=== PATIENT | male | born 1950 | race African-American/Black ===

== ENCOUNTER 2017-02-14 12:48 | Emergency (ER) | payer OTHER, BC ==
[2017-02-14 13:03] VITALS: BP 122/74; PULSE 115; TEMP 98.3; BMI 34.2
[2017-02-14] MEDS ORDERED: SODIUM CHLORIDE 0.9% 1000 ML INFUS.BAG IV ONE (15:15)
--- NOTE | 2017-02-14 15:16 | PDOC ---
Attending Attestation - Resident Resident Name: Marck Dias - ED Attending Attestation I have performed the following: I have examined & evaluated the patient, The case was reviewed & discussed with the resident, I agree w/resident's findings & plan, Exceptions are as noted
[2017-02-14] MEDS ORDERED: FAMOTIDINE 20 MG/50 ML IVPB 20 MG/50 ML MG IVPB ONE ×2 (15:40→16:21)
--- NOTE | 2017-02-14 16:00 | PDOC ---
History of Present Illness - General Chief Complaint: Vomiting/Diarrhea Stated Complaint: NAUSEA/VOMITING Time Seen by Provider: 02/14/17 15:06 History Source: Patient Exam Limitations: No Limitations - History of Present Illness Initial Comments: 02/14/17 15:49 The patient is a 67M with a PMH of HTN and prostate CA who presents to the ED with 1 day of nausea, vomiting, and abdominal pain. The patient states that his abdominal pain is periumbilical and does not radiate to his abdomen. He is not able to describe it as anything but pain. It is associated with nausea, vomiting , and diarrhea. He denies any blood in his vomit or diarrhea but states that his diarrhea is watery. He is on day 7 of antibiotics for bronchitis from his PCP, Dr. Thurston. He is also complaining of CP since this morning when he woke up which is retrosternal, does not radiate, and he is not able to describe it as anything besides "pain, like a hole in my chest". Past History - Past Medical History Allergies/Adverse Reactions: Allergies Allergy/AdvReac Type Severity Reaction Status Date / Time aspirin Allergy Severe Low Blood Verified 02/14/17 12:59 Pressure Home Medications: Ambulatory Orders Amlodipine Besylate [Norvasc -] 10 mg PO DAILY 04/29/13 Ciprofloxacin [Cipro -] 500 mg PO Q12H #14 tablet 04/29/13 Metronidazole [Flagyl] 500 mg PO BID #14 tablet 04/29/13 Oxycodone HCl/Acetaminophen [Percocet 5-325 mg Tablet -] 1 - 2 tab PO Q6H #20 tablet 04/29/13 Ondansetron [Zofran -] 4 mg PO BID #14 tablet 02/14/17 Cancer: Yes (prostate) COPD: No HTN: Yes Hypercholesterolemia: Yes - Surgical History Neurologic Surgery: Yes (spinal) - Immunization History Immunization Up to Date: Yes - Suicide/Smoking/Psychosocial Hx Smoking Status: No Smoking History: Former smoker Have you smoked in the past 12 months: No Number of Cigarettes Smoked Daily: 0 If you are a former smoker, when did you quit?: 1970 Information on smoking cessation initiated: No Hx Alcohol Use: No Drug/Substance Use Hx: No Substance Use Type: None Review of Systems - Review of Systems Able to Perform ROS?: Yes Comments:: 02/14/17 16:01 GENERAL/CONSTITUTIONAL: No fever or chills. No weakness. HEAD, EYES, EARS, NOSE AND THROAT: No change in vision. No ear pain or discharge. No sore throat. GASTROINTESTINAL: Positive for nausea, vomiting, diarrhea, and abdominal pain. GENITOURINARY: No dysuria, frequency, hematuria, or change in urination. CARDIOVASCULAR: Positive for chest pain. No palpitations or lightheadedness. RESPIRATORY: No cough, wheezing, shortness of breath, or hemoptysis. MUSCULOSKELETAL: No joint or muscle swelling or pain. No neck or back pain. SKIN: No rash or lesions. NEUROLOGIC: No headache, numbness, tingling, weakness, loss of consciousness, or change in strength/sensation. ENDOCRINE: No increased thirst. No abnormal weight change. HEMATOLOGIC/LYMPHATIC: No anemia, easy bleeding, or history of blood clots. ALLERGIC/IMMUNOLOGIC: No hives or skin allergy. Is the patient limited Arabic proficient: No *Physical Exam - Vital Signs Last Vital Signs Temp Pulse Resp BP Pulse Ox 98.3 F 115 H 18 122/74 100 02/14/17 13:00 02/14/17 13:00 02/14/17 13:00 02/14/17 13:00 02/14/17 13:00 - Physical Exam Comments: 02/14/17 16:03 GENERAL: Well developed, well nourished. Awake and alert. No acute distress. HEENT: Normocephalic, atraumatic. Hearing grossly normal. Moist mucous membranes. NECK: Supple. Full ROM. No JVD. CARDIOVASCULAR: Regular rate and rhythm. No murmurs, rubs, or gallops. PULMONARY: No evidence of respiratory distress. Lungs clear to auscultation bilaterally. No wheezing, rales or rhonchi. ABDOMINAL: Soft. Tender to deep palpation over periumbilical abdomen. Non- distended. No rebound or guarding. GENITOURINARY: No CVA tenderness bilaterally. MUSCULOSKELETAL: Normal range of motion at all joints. No bony deformities or tenderness. EXTREMITIES: No cyanosis. No clubbing. No edema. No calf tenderness. SKIN: Warm and dry. Normal capillary refill. No rashes. No jaundice. NEUROLOGICAL: Alert, awake, appropriate. Cranial nerves 2-12 intact. Normal speech. Gait is normal without ataxia. PSYCHIATRIC: Cooperative. Good eye contact. Appropriate mood and affect. ED Treatment Course - LABORATORY CBC & Chemistry Diagram: 02/14/17 16:00 02/14/17 16:00 - RADIOLOGY Radiology Studies Ordered: Category Date Time Status CHEST PA & LAT [RAD] Stat Radiology 02/14/17 15:18 Taken Medical Decision Making - Medical Decision Making 02/14/17 16:05 The patient is a 67M with a PMH of HTN who presents to the ED with complaints of abdominal pain, nausea, vomiting, and CP. I have a low suspicion for any cardiac events but I would like to rule it out definitely with an EKG and cardiac profile. I want a CXR to r/o any perforation. Pending labs and imaging. I have a higher suspicion for gastroenteritis but I would like to ensure nothing more serious is going on. Will monitor closely. 02/14/17 17:26 Labs WNL. CXR negative. Pt is ready for d/c. Will d/c home with zofran. *DC/Admit/Observation/Transfer Diagnosis at time of Disposition: Abdominal pain Qualifiers: Abdominal location: periumbilical Qualified Code(s): R10.33 - Periumbilical pain - Discharge Dispostion Disposition: HOME Condition at time of disposition: Stable Admit: No - Referrals Referrals: Livan Thurston MD [Primary Care Provider] - - Patient Instructions Printed Discharge Instructions: Viral Gastroenteritis Additional Instructions: Please return to the ER if symptoms persist, worsen, or new symptoms arise. Please follow up with your primary care physician in 2-3 days. Please return to the ER if you have any signs or symptoms of chest pain, shortness of breath, uncontrollable fever, chills, nausea, vomiting, numbness, tingling, or weakness in any part of your body, changes in vision, or slurred speech. Please take your Zofran as needed. Print Language: TURKMEN - Post Discharge Activity
[2017-02-14 16:04] LABS: BASO % 0.3 % (0-2.0); EOS % 0.1 % (0-4.5); HEMATOCRIT 43.6 % (35.4-49); HEMOGLOBIN 14.5 GM/dL (11.7-16.9); LYMPH % 12.5 % (8-40); MCH 30.4 pg (25.7-33.7); MCHC 33.3 g/dl (32.0-35.9); MEAN CELL VOLUME 91.1 fl (80-96); MONO % 4.3 % (3.8-10.2); NEUT % 82.8 % (42.8-82.8); PLATELET COUNT 257 K/MM3 (134-434); RBC 4.79 M/mm3 (4.00-5.60); RDW 14.5 % (11.9-15.9); WHITE BLOOD COUNT 7.4 K/mm3 (4.0-10.0)
[2017-02-14 16:41] LABS: ALBUMIN 3.6 g/dl (3.4-5.0); ANION GAP 4 (8-16); BLOOD UREA NITROGEN 14 mg/dL (7-18); CALCIUM 8.4 mg/dL (8.5-10.1); CHLORIDE 103 mmol/L (98-107); CO2 30 mmol/L (21-32); CREATININE 1.1 mg/dL (0.7-1.3); GLUCOSE,RANDOM 102 mg/dL (74-106); POTASSIUM 4.1 mmol/L (3.5-5.1); SGOT/AST 31 U/L (15-37); SGPT/ALT 65 U/L (12-78); SODIUM 137 mmol/L (136-145)
[2017-02-14 16:45] LABS: ALK PHOS 86 U/L (45-117); BILIRUBIN,TOTAL 0.7 mg/dL (0.2-1.0); TOT PROT 7.9 g/dl (6.4-8.2)
--- NOTE | 2017-02-15 09:18 | EKG ---
Test Reason : Blood Pressure : / mmHG Vent. Rate : 095 BPM Atrial Rate : 095 BPM P-R Int : 164 ms QRS Dur : 080 ms QT Int : 314 ms P-R-T Axes : 051 -19 026 degrees QTc Int : 394 ms NORMAL SINUS RHYTHM POSSIBLE LEFT ATRIAL ENLARGEMENT LEFT VENTRICULAR HYPERTROPHY ABNORMAL ECG WHEN COMPARED WITH ECG OF 27-OCT-2009 12:59, NO SIGNIFICANT CHANGE WAS FOUND Confirmed by MD Jaylin, Jan ([id number]) on 02/15/2017 9:18:16 AM Referred By: Confirmed By:Jan Mosqueda MD
== END 2017-02-14 19:50 | disposition home or self-care (01) ==
LOC: JER 12:48
PROC: 3E033GC Introduction of Other Therapeutic Substance into Peripheral Vein, Percutaneous Approach (ICD-10-PCS; principal; 2017-02-14)
DX: R10.33 Periumbilical pain (principal); Z86.73 Personal history of transient ischemic attack (TIA), and cerebral infarction without residual deficits; I10 Essential (primary) hypertension
CPT/HCPCS: 36415; 71046-TC; 80053; 82550; 83690; 84484; 85025; 93005; 93010; 99282-25